=== PATIENT | female | born 1950 | race Caucasian/White ===

== ENCOUNTER → 2017-01-06 | Outpatient (CLI) | payer OTHER ==
[~2017-01-06] MED LIST: ADVIN50050 INH; ALPPOPS5 OP; AMB5 PO; ASPEC325 PO; ATOR-22 PO; CLB/200 PO; CLX20 PO; CZR50 PO; FLX10 PO; HYDR2TAB3 PO; OXYSR10 PO; POTA-331 PO; PRVHFAIN INH; SNK PO; SYN150 PO; TRAM-10 PO; TRIA75TA53 PO
[2017-01-06 09:36] LABS: BASO % 0.2 %; BASO ABS # 0.01 K/uL (0-0.2); COMPLETE YES; HEMATOCRIT 40.1 % (37-47); IG% 0.5 %; LYMPH % 21.5 %; LYMPH ABS # 0.92 K/uL (1.2-3.4); MEAN CELL VOLUME 86.2 fL (80-100); MEAN CORPUSCULAR HGB CONC 32.4 g/dl (32-36); MEAN PLATELET VOLUME 9.4 fL (7.4-10.4); MONO % 8.9 %; NEUT % 64.9 %; PLATELET COUNT 245 K/uL (130-400); RED BLOOD COUNT 4.65 M/uL (4.2-5.4); WHITE BLOOD COUNT 4.28 K/uL (4.8-10.8)
[2017-01-06 10:42] LABS: ALT/SGPT 23 U/L (12-78); AST/SGOT 10 U/L (15-37); BLOOD UREA NITROGEN 25 mg/dl (7-18); BUN/CREATININE RATIO 28.1 (10-20); CALCIUM 8.9 mg/dl (8.5-10.1); CARBON DIOXIDE 29 mmol/L (21-32); CHLORIDE 106 mmol/L (98-107); CREATININE 0.88 mg/dl (0.60-1.20); GLUCOSE 124 mg/dl (70-99); POTASSIUM 4.1 mmol/L (3.5-5.1); SODIUM 143 mmol/L (136-145)
[2017-01-06 10:53] LABS: ALB/GLOB RATIO 1.2 (0.9-2); ALKALINE PHOSPHATASE 75 U/L (45-117); CHOLESTEROL 218 mg/dl (0-200); HDL CHOLESTEROL 55 mg/dl; LDL CHOLESTEROL CALCULATED 117 mg/dl; THYROID STIMULATING HORMONE 0.227 uIu/ml (0.300-4.500); TRIGLYCERIDES 232 mg/dl (0-150); VERY LOW DENSITY LIPOPROT CALC 46 mg/dl
[2017-01-06 10:59] LABS: ESTIMATED AVERAGE GLUCOSE 131 mg/dl; HA1C FLAG Normal (Normal)
== END | disposition home or self-care (01) ==
LOC: C.LAB 08:44
PROVIDERS: ATTEND Internal Medicine Pulmonary Disease
DX: J45.909 Unspecified asthma, uncomplicated (principal); E78.5 Hyperlipidemia, unspecified; I10 Essential (primary) hypertension; E03.9 Hypothyroidism, unspecified; E11.9 Type 2 diabetes mellitus without complications

== ENCOUNTER → 2017-08-19 | Outpatient (CLI) | payer OTHER ==
[2017-08-19 12:07] LABS: BASO % 0.2 %; BASO ABS # 0.01 K/uL (0-0.2); COMPLETE YES; EOS % 3.3 %; IG% 0.7 %; LYMPH % 19.2 %; LYMPH ABS # 1.06 K/uL (1.2-3.4); MEAN CELL VOLUME 85.9 fL (80-100); MEAN CORPUSCULAR HEMOGLOBIN 28.9 pg (25-34); MEAN CORPUSCULAR HGB CONC 33.6 g/dl (32-36); MEAN PLATELET VOLUME 9.7 fL (7.4-10.4); MONO % 7.4 %; NEUT % 69.2 %; PLATELET COUNT 232 K/uL (130-400); RED BLOOD COUNT 4.54 M/uL (4.2-5.4); WHITE BLOOD COUNT 5.51 K/uL (4.8-10.8)
--- NOTE | 2017-08-19 13:37 | DIAGNOSTIC IMAGING REPORT ---
THREE-PHASE NUCLEAR BONE SCAN OF THE KNEES CLINICAL HISTORY: Right knee pain. COMPARISON STUDY: Radiographs of the right and left knee dated 05/09/2015. TECHNIQUE: Following the IV administration of 24.8 mCi of technetium 99m MDP, three-phase bone scan of the the knees was performed. Flow and blood pool imaging of both knees was acquired both anteriorly and posteriorly. Bone phase imaging of both knees was performed at three hours in multiple obliquities. FINDINGS: There is minimal hyperemia suggested around the left knee on the flow and blood pool phase images. No hyperemia seen around the right knee. 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 There is slightly asymmetric tracer deposition identified around the tibial component of the right knee arthroplasty. Additional foci of low level tracer activity are likely within normal limits. IMPRESSION: 1. Three-phase negative bone scan of the right knee. 2. There is asymmetrically increased bone phase activity around the tibial component of the right knee arthroplasty. This is nonspecific and could be seen in the setting of aseptic loosening. Clinical correlation will be required. 3. There is mild hyperemia suggested around the left knee on the flow and blood flow phase images. No abnormal bone phase activity suggested. Correlate clinically for evidence of soft tissue edema. Electronically signed by: Rupert Ferrari M.D. 08/19/2017 1:36 PM Dictated Date/Time: 08/19/2017 1:30 PM
== END | disposition home or self-care (01) ==
LOC: C.NUCL 10:00
PROVIDERS: ATTEND Physician Assistant Medical
DX: Z96.653 Presence of artificial knee joint, bilateral (principal)

== ENCOUNTER → 2017-12-29 | Day surgery (SDC) | payer OTHER ==
[2017-12-14 08:05] VITALS: Ht 174 cm; Wt 127.3 kg
[~2017-12-29] VITALS: Ht 174 cm; Wt 127.3 kg
[~2017-12-29] MED LIST changes: +500ML BSS 0.3ML EPI 1:1000PF IRRIG ONE; +ACETAMINOPHEN 325 MG TAB PO PRN; +ADVIN50/60 INH; -ADVIN50050 INH; -AMB5 PO; +AMVISC PLUS 0.8ML SYRINGE INT OCU ONE; -ASPEC325 PO; +ASPECOTC PO; -ATOR-22 PO; +ATROPINE SULFATE 0.1 MG/ML 5ML SYR IV PRN; +AcetaZOLAMIDE 250 MG TAB PO SCH; +BETAXOLOL HCL 0.25% OP SUSP PER DROP CHARGE OPR SCH; +BRIMONIDINE TART 0.2% OP SOLN PER DROP CHARGE ONE; +BSS FLUSH ONE; -CZR50 PO; +ENDOCOAT 0.85ML SYRINGE INT OCU ONE; +EpHEDrine SULFATE INJ 50 MG/ML AMP IV PRN; +EpINEphrine INJ 1MG/ML AMP 1 MG/ML AMP ONE; +GLIP-197 PO; -HYDR2TAB3 PO; +LACTATED RINGER'S 1000ML 500 ML IV SCH; +LEVO200T6 PO; +LIDOCAINE 4% OP SOLN DROP CHARGE ONE; +LIDOCAINE 4% OP SOLN DROP CHARGE OPR SCH; +LIDOCAINE HCL 1% MPF 2 ML VIAL ONE; +LOSA1TAB38 PO; +METF500T5 PO; +MIDAZOLAM HCL 1 MG/ML 2ML VIAL ONE; +MIX: 4ML BSS 1ML EPI 1:1000 PF INSTIL ONE; +MOXIFLOXACIN OPH SOLN PER DROP CHARGE ONE; +NURSING VERBAL MED ORDER ONE; +OCUCOAT 1 ML SOLN IO ONE; -OXYSR10 PO; -POTA-331 PO; +POVIDONE-IODINE OP SOLN 30 ML BTL ONE; +PROPARACAINE 0.5% OP SOLN PER DROP CHARGE OPR ONE; +PROPARACAINE 0.5% OP SOLN PER DROP CHARGE OPR SCH; -SNK PO; -SYN150 PO; +TOBRAMYCIN/DEXAMETHASONE OPH OINT PER APPLN CHARGE ONE
[2017-12-29] MEDS: PHENYLEPHRINE HCL 2.5% OP SOLN PER DROP CHARGE OPR SCH ×2 (07:43→07:47)
[2017-12-29] MEDS: TROPICAMIDE 1% OP SOLN PER DROP CHARGE OPR SCH ×2 (07:44→07:48)
[2017-12-29] MEDS: CYCLOPENTOLATE HCL 1% OP SOLN PER DROP CHARGE OPR SCH ×2 (07:45→07:49)
[2017-12-29] MEDS: MOXIFLOXACIN OPH SOLN PER DROP CHARGE OPR SCH ×2 (07:46→07:52)
--- NOTE | 2017-12-29 07:55 | History & Physical Bridge - [place] ---
H&P Re-Evaluation Bridge Note: I have examined the patient, reviewed the History & Physical and in the interval since the performance of the History & Physical I have noted the following changes of clinical significance: No changes noted
--- NOTE | 2017-12-29 08:26 | [facility] Operative Report ---
Operative Report Date of Service Dec 29, 2017. Operative Report 1. PREOPERATIVE DIAGNOSIS: Senile nuclear cataract, right eye. 2. POSTOPERATIVE DIAGNOSIS: Senile nuclear cataract, right eye. 3. PROCEDURE: Phacoemulsification of right cataract with posterior chamber lens implant, type [employer], model MI60L, power +22.5 diopters. ANESTHESIA: Local standby. SURGEON: Dr. Camp. COMPLICATIONS: None. OPERATING TIME: 10 minutes. 4. OPERATION AND FINDINGS: DESCRIPTION OF PROCEDURE: The right pupil was dilated. The anesthetic was administered using a topical technique. The right eye was prepped and draped. A speculum was placed. A clear corneal incision was formed. The chamber was filled with Amvisc Plus and Endocoat. Epinephrine solution was used. A paracentesis was placed. A capsulorrhexis was performed. The nucleus was hydrodissected. The lens was removed with phacoemulsification. Time was 1.84 seconds. The aspiration unit was used to remove the cortex. The capsule was filled with Amvisc Plus. The lens implant was folded and placed into the capsule. The incision was hydrated. The Amvisc was aspirated. The wound was secure. The chamber was deep. The pupil was round. Brimonidine, TobraDex ointment and Vigamox solution were placed. The speculum was removed. The patient was returned to the Recovery Room in stable condition. I attest to the content of the Intraoperative Record and any orders documented therein. Any exceptions are noted below. The scribe's documentation has been prepared in my presence, under my direction and personally reviewed by me in its entirety. I confirm that the note above accurately reflects all work, treatment, procedures, and medical decision making performed by me. I personally scribed for Isaiah Camp M.D. ([email or web address]) on 12/29/17 at 08:26. Electronically submitted by Arpita Villafuerte ([email or web address]).
--- NOTE | 2017-12-29 08:30 | Discharge Instructions-SurgCtr ---
Discharge Instructions Date of Service Dec 29, 2017. Visit Reason for Visit: Cataract Right Eye Discharge Discharge Diagnosis / Problem: lens implant right eye Discharge Goals Goal(s): Improve function Activity Recommendations Activity Limitations: resume your previous activity Lifting Limitations: no more than 10 pounds Exercise/Sports Limitations: gradually increase as tolerated May Resume Sexual Activity: when tolerated Shower/Bathe: tomorrow Driving or Machine Use: resume 1 day after discharge Anesthesia . Post Anesthesia Instructions: If you have had General Anesthesia or IV Sedation: * Do not drive today. * Resume driving when surgeon permits. * Do not make important decisions or sign legal documents today. * Call surgeon for: 1. Temperature elevations greater than 101 degrees F. 2. Uncontrollable pain. 3. Excessive bleeding. 4. Persistent nausea and vomiting. 5. Medication intolerance (nausea, vomiting or rash). * For nausea and vomiting use only clear liquids such as: tea, soda, bouillon until nausea subsides, then gradually increase diet as tolerated. * If you have any concerns or questions, call your surgeon's office. If physician is unavailable and it is an emergency, call 911 or go to the nearest emergency room. . Instructions / Follow-Up Instructions / Follow-Up ACTIVITY RECOMMENDATIONS: * Light activities. * Mild irritation and blurred vision are common for the first few days. * You may walk outside, read, watch television. * Redness around the white part of the eye is common. MEDICATIONS: Resume previous medications unless instructed otherwise by your surgeon. * Take white Diamox (Acetazolamide) tablet at 1 pm today. Start all eye drops at 1 pm today: * Eye drops (today and tomorrow): Prednisone - one drop in operative eye every 3 hours while awake Ofloxacin - one drop in operative eye every 3 hours while awake Continue Glaucoma Eye Drops in Left Eye only as usual SPECIAL CARE INSTRUCTIONS: * Tape plastic shield over eye to sleep at night. Call your doctor at with any concerns or problems. FOLLOW UP VISIT: Follow-up with Dr Camp at [place] office as scheduled. Diet Recommendations Home Diet: no limitations Procedures Procedures Performed: Right Cataract Phacoemulsification With Intraocular Lens Implant Pending Studies Studies pending at discharge: no Medical Emergencies . Who to Call and When: Medical Emergencies: If at any time you feel your situation is an emergency, please call 911 immediately. . Non-Emergent Contact Non-Emergency issues call your: Erosion Control Coordinator Call Non-Emergent contact if: your pain is not controlled [phone] . . "Provider Documentation" section prepared by Isaiah Camp. .
[2017-12-29 08:31] VITALS: TEMP 36.6
[2017-12-29 09:00] VITALS: BP 130/78; PULSE 55; O2SAT 98
--- NOTE | 2017-12-29 09:08 | Anesthesia Progress Nt - [facility] ---
Anesthesia Post Op Note Date & Time Dec 29, 2017 at 09:07 Vital Signs Pain Intensity: 3 Vital Signs Past 12 Hours Date Time Temp Pulse Resp B/P (MAP) Pulse Ox O2 Delivery O2 Flow Rate FiO2 12/29/17 09:00 55 16 130/78 (95) 98 Room Air 12/29/17 08:31 36.6 50 18 136/78 (97) 96 Room Air 12/29/17 07:29 36.4 61 20 181/81 (114) 96 Room Air Notes Mental Status: alert / awake / arousable, participated in evaluation Pt Amnestic to Procedure: Yes Nausea / Vomiting: adequately controlled Pain: adequately controlled Airway Patency, RR, SpO2: stable & adequate BP & HR: stable & adequate Hydration State: stable & adequate Anesthetic Complications: no major complications apparent
== END | disposition home or self-care (01) ==
LOC: X.SURG 07:19
PROVIDERS: ATTEND Specialist
DX: E11.36 Type 2 diabetes mellitus with diabetic cataract (principal); H25.11 Age-related nuclear cataract, right eye; I10 Essential (primary) hypertension; J45.909 Unspecified asthma, uncomplicated; G47.33 Obstructive sleep apnea (adult) (pediatric); Z79.82 Long term (current) use of aspirin; M19.90 Unspecified osteoarthritis, unspecified site; H40.9 Unspecified glaucoma; E66.9 Obesity, unspecified; Z98.42 Cataract extraction status, left eye; Z68.41 Body mass index [BMI] 40.0-44.9, adult; Z79.899 Other long term (current) drug therapy